=== PATIENT | male | born 1955 | race Caucasian/White ===

== ENCOUNTER 2021-11-23 09:43 | Outpatient (CLI) | payer BC, SELFPAY ==
--- NOTE | 2021-11-23 | USCV_ITS ---
Rogerio Pham Age: 66 Gender: M : 1955 Exam Date: 11/23/2021 11:51 Ordering Phys: Milton Finley MD Technologist: [place] [facility] [place]: lt leg pain and swelling PROCEDURES: Venous duplex imaging was performed in only the left lower extremity. The following venous structures were evaluated: common femoral vein, profunda vein, proximal portion of the greater saphenous vein, superficial femoral vein, and the popliteal vein. In addition, the posterior tibial and peroneal trunk were evaluated. FINDINGS: Normal 2-D Doppler and augmentation and compressibility throughout the lower extremity venous structures. Additional imaging through the proximal calf veins also reveals no thrombus. Limited evaluation of the greater saphenous vein is patent with no thrombus. Mixed echogenicity collection measures 4.1 cm in length over the tibia. Most consistent with a subacute henatoma. CONCLUSIONS No DVT left lower extremity. Complex collection over the mid tibia most consistent with a hematoma. Dr. Lacey Castro DO (Electronically Signed) Final Date: 24 November 2021 07:09 S
--- NOTE | 2021-11-23 11:15 | XRR_ITS ---
PROCEDURE INFORMATION: Exam: XR Left Tibia and Fibula Exam date and time: 11/23/2021 11:18 AM Age: 66 years old Clinical indication: Swelling, leg or foot; Lower leg; Left; Patient HX: Pain and swelling in proximal tib/fib lt lateral side, PT fell through boards 2 weeks ago; Additional info: Left lower leg pain TECHNIQUE: Imaging protocol: Radiologic exam of the Left tibia and fibula. Views: 2 views. COMPARISON: No relevant prior studies available. FINDINGS: Bones/joints: Negative for acute bony abnormality. Soft tissues: Soft tissue edema is seen in the proximal anterior aspect of the lower leg XR/XR tibia fibula LT 2V [id number] IMPRESSION: 1. No acute bone abnormality. 2. Soft tissue edema near the anterior proximal tibia
== END 2021-11-23 09:44 | disposition home or self-care (01) ==
PROVIDERS: Visit Provider Family Medicine
DX: M79.662 Pain in left lower leg (principal); M79.89 Other specified soft tissue disorders; R60.0 Localized edema
CPT/HCPCS: 73590; 93971

== ENCOUNTER → 2024-05-30 10:10 | Outpatient (BNVA) | payer MEDICARE, SELFPAY | PROVIDERS: Visit Provider Nurse Practitioner Family | DX: D23.22 Other benign neoplasm of skin of left ear and external auricular canal (principal); D23.21 Other benign neoplasm of skin of right ear and external auricular canal; L81.4 Other melanin hyperpigmentation; L57.8 Other skin changes due to chronic exposure to nonionizing radiation; X32.XXXA Exposure to sunlight, initial encounter; L57.0 Actinic keratosis; Z80.8 Family history of malignant neoplasm of other organs or systems; D48.5 Neoplasm of uncertain behavior of skin | CPT/HCPCS: 11102; 17000; 99203 ==

== ENCOUNTER → 2024-08-27 08:56 | Outpatient (BNVA) | payer MEDICARE, SELFPAY | PROVIDERS: Visit Provider Family Medicine | DX: Z00.00 Encounter for general adult medical examination without abnormal findings (principal); Z12.5 Encounter for screening for malignant neoplasm of prostate; E78.2 Mixed hyperlipidemia; R03.0 Elevated blood-pressure reading, without diagnosis of hypertension | CPT/HCPCS: 80053; 85025; G0103 ==